=== PATIENT | male | born 1965 | race African-American/Black ===

== ENCOUNTER 2023-01-14 14:33 | Observation (INO) | payer MEDICAID ==
[~2023-01-14] VITALS: Ht 182.9 cm; Wt 99.3 kg
[2023-01-14 15:47] LABS: BASOPHILS ABSOLUTE AUTO 0.03 K/mm3 (0.00-0.23); BASOPHILS PERCENT AUTO 0 % (0-2); EOSINOPHILS PERCENT AUTO 3 % (0-6); Hematocrit 39.4 % (37.0-53.0); Hemoglobin 12.6 g/dL (13.5-17.5); IMMATURE GRAN ABSOLUTE AUTO 0.02 K/mm3 (0.00-0.10); IMMATURE GRAN PERCENT AUTO 0 % (0-1); LYMPHOCYTES ABSOLUTE AUTO 1.43 K/mm3 (0.84-5.20); LYMPHOCYTES PERCENT AUTO 20 % (21-46); MONOCYTES ABSOLUTE AUTO 0.84 K/mm3 (0.16-1.47); MONOCYTES PERCENT AUTO 12 % (4-13); Mean Corpuscular HGB 27.4 pg (26.0-34.0); Mean Corpuscular Volume 86 fL (80-100); Mean Platelet Volume 10.3 fL (9.1-12.4); NEUTROPHILS ABSOLUTE AUTO 4.48 K/mm3 (1.96-9.15); NEUTROPHILS PERCENT AUTO 64 % (41-73); Platelet Count 140 K/mm3 (150-400); RDW Coefficient Variation 14.2 % (11.7-14.2); RDW Standard Deviation 44.9 fL (35.1-46.3)
[2023-01-14 16:13] LABS: Albumin, Blood 3.1 g/dL (3.4-5.0); Albumin/Globulin Ratio 0.6 (0.8-1.8); Bilirubin, Total 0.4 mg/dL (0.1-1.0); Bun/Creatinine Ratio 15.5 (12.0-20.0); Calcium, Blood 8.9 mg/dL (8.5-10.1); Creatinine, Blood 1.16 mg/dL (0.60-1.20); Globulin, Blood 5.4 g/dL (2.2-4.0); Potassium, Blood 3.9 mmol/L (3.5-5.5); Total Protein, Blood 8.5 g/dL (6.4-8.2)
[2023-01-14 16:20] LABS: International Normalized Ratio 1.05
[2023-01-14] MEDS ORDERED: Prinivil10 MG (17:37)
[2023-01-14] MEDS ORDERED: CLOP75 (17:37)
[2023-01-14] MEDS ORDERED: AMLO5 (17:37)
[2023-01-15 04:10] LABS: BASOPHILS ABSOLUTE AUTO 0.03 K/mm3 (0.00-0.23); BASOPHILS PERCENT AUTO 1 % (0-2); EOSINOPHILS ABSOLUTE AUTO 0.31 K/mm3 (0.00-0.68); EOSINOPHILS PERCENT AUTO 5 % (0-6); Hematocrit 35.7 % (37.0-53.0); Hemoglobin 11.3 g/dL (13.5-17.5); IMMATURE GRAN ABSOLUTE AUTO 0.02 K/mm3 (0.00-0.10); IMMATURE GRAN PERCENT AUTO 0 % (0-1); LYMPHOCYTES ABSOLUTE AUTO 2.37 K/mm3 (0.84-5.20); LYMPHOCYTES PERCENT AUTO 38 % (21-46); MONOCYTES PERCENT AUTO 13 % (4-13); Mean Corpuscular HGB 26.7 pg (26.0-34.0); Mean Corpuscular HGB Conc 31.7 g/dL (31.5-36.5); Mean Corpuscular Volume 84 fL (80-100); NEUTROPHILS ABSOLUTE AUTO 2.73 K/mm3 (1.96-9.15); NEUTROPHILS PERCENT AUTO 44 % (41-73); Platelet Count 144 K/mm3 (150-400); RDW Coefficient Variation 14.4 % (11.7-14.2); RDW Standard Deviation 43.8 fL (35.1-46.3); Red Blood Cell Count 4.24 M/mm3 (4.30-5.90); White Blood Cell Count 6.26 K/mm3 (4.00-11.30)
[2023-01-15 04:40] LABS: Magnesium, Blood 2.4 mg/dL (1.6-2.4)
[2023-01-15 05:38] LABS: Albumin, Blood 2.7 g/dL (3.4-5.0); Albumin/Globulin Ratio 0.6 (0.8-1.8); Bilirubin, Total 0.4 mg/dL (0.1-1.0); Bun/Creatinine Ratio 15.9 (12.0-20.0); Calcium, Blood 8.5 mg/dL (8.5-10.1); Creatinine, Blood 1.13 mg/dL (0.60-1.20); Globulin, Blood 4.5 g/dL (2.2-4.0); Potassium, Blood 3.7 mmol/L (3.5-5.5); Total Protein, Blood 7.2 g/dL (6.4-8.2)
--- NOTE | 2023-01-15 06:41 | NUR ---
SHIFT SUMMARY ASSUMED CARE OF PT AT AROUND 2200. PT IS A/OX4, HEART SOUNDS REGULAR. LUNG SOUNDS HAVE CRACKLES AT THE BASES. PT WAS RA T/O THE NIGHT. PT DESATED TO 88% WHILE SLEEPING BUT RECOVERED QUICKLY. PT WAS A SBA TO BATHROOM. PT C/O PAIN IN R LEG. LEG IS MORE SWOLLEN THAN LEFT. PT MEDICATED PER EMAR. PT NPO SINCE MIDNIGHT. HEPRIN RUNNING.
--- NOTE | 2023-01-15 15:17 | NUR ---
ASSUMED CARE OF PT AT 0700 THIS AM. PT HAS HAD NO COMPLAINTS T/O THE SHIFT, HEPARIN RUNNING PER ORDERS. PT TO PROCEUDRE AT THIS TIME.
--- NOTE | 2023-01-15 18:57 | NUR ---
PT RETURNED FROM PROCEDURE APROX 1710 WITH FLOSTASIS CLOSURE TO R POPLETEAL. SITE SOFT, NON TENDER, NO BLEEDING OR HEMATOMA NOTED. PEDAL PULSES STRONG TO PALPATION. PT DENIES PAIN OR SOB AT THIS TIME. SEE DOCUMENTED VS. CALL LIGHT IN REACH, PT ABLE TO USE CALL LIGHT FOR NEEDS. REPORT GIVEN TO ISRAEL LEBRON RN.
--- NOTE | 2023-01-15 19:29 | NUR ---
ASSUMPTION OF CARE THIS RN ASSUMED CARE OF PATIENT AT 1900. REPORT TAKEN FROM ELMER RN. ELMER RN, ORTEGA RN, AND THIS RN AT BEDSIDE AFTER SHIFT CHANGE TO REMOVE FLOWSTASIS DEVICE FROM LEFT POPLITEAL. SITE OOZING BLOOD SLIGHTLY AFTER REMOVAL, GUAZE PRESSURE DRESSING APPLIED. PATIENT INSTRUCTED ON KEEPING LEG STRAIGHT AND AVOIDING MOVEMENT MUCH POSSIBLE. THIS RN WILL CONTINUE TO MONITOR CLOSELY FOR BLEEDING AND COMPLICATIONS. PATIENT WITH STABLE VITALS, ON ROOM AIR. DENYING CHEST PAIN/PRESSURE AND SOB AT THIS TIME. STRONG PULSES PALPATED THOUGHOUT. PATIENT A&O AND ABLE TO MAKE NEEDS KNOWN. CALM AND COOPERATIVE WITH CARE. BED IN LOWEST POSITION AND CALL LIGHT WITHIN REACH.
--- NOTE | 2023-01-16 04:44 | NUR ---
SHIFT SUMMARY PATIENT DEVELOPED A DULL CONSTANT PAIN IN THE RLQ/GROIN AREA DURING THIS SHIFT, THAT HE DESCRIBED 8/10. PATIENT MEDICATED PER EMAR WITH NO RESULTS. CALL PLACED TO MD GOMEZ REGARDING PAIN, ORDER FOR NORCO PLACED. PATIENT APPEARS TO BE RESTING AT THIS TIME. BP STABLE WITH SBP 130-140'S. SR WITH 1ST DEGREE HB NOTED ON MONITOR WITH HR 70'S. AFEBRILE. PATIENT DENIES SOB AND CHEST PAIN. SPO2 DECREASES TO 88% WHILE SLEEPING. PATIENT PLACED ON 2L VIA NC WHEN ASLEEP. OTHERWISE SPO2 >92% ON RA WHILE AWAKE. THIS RN REMOVED RIGHT POPLITEAL PRESSURE DRESSING AROUND 0000, AND REPLACED WITH TEGADERM. DRESSING C/D/I, SITE WITHOUT OOZING, BLEEDING, INFLAMMATION, HEMATOMA, OR TENDERNESS. PATIENT AMBULATED TO BATHROOM WITH NO COMPLAINTS/DISTRESS NOTED. PATIENT A&O. CALLS APPROPRIATELY. BED IN LOWEST POSITION AND CALL LIGHT WITHIN REACH. THIS RN WILL CONTINUE TO MONITOR UNTIL SHIFT CHANGE AT 0700.
[2023-01-16 07:20] LABS: BASOPHILS ABSOLUTE AUTO 0.03 K/mm3 (0.00-0.23); BASOPHILS PERCENT AUTO 1 % (0-2); EOSINOPHILS ABSOLUTE AUTO 0.33 K/mm3 (0.00-0.68); EOSINOPHILS PERCENT AUTO 7 % (0-6); Hematocrit 34.7 % (37.0-53.0); Hemoglobin 11.4 g/dL (13.5-17.5); IMMATURE GRAN ABSOLUTE AUTO 0.01 K/mm3 (0.00-0.10); IMMATURE GRAN PERCENT AUTO 0 % (0-1); LYMPHOCYTES PERCENT AUTO 24 % (21-46); MONOCYTES ABSOLUTE AUTO 0.68 K/mm3 (0.16-1.47); MONOCYTES PERCENT AUTO 13 % (4-13); Mean Corpuscular HGB 27.4 pg (26.0-34.0); Mean Corpuscular HGB Conc 32.9 g/dL (31.5-36.5); Mean Corpuscular Volume 83 fL (80-100); Mean Platelet Volume 9.8 fL (9.1-12.4); NEUTROPHILS ABSOLUTE AUTO 2.83 K/mm3 (1.96-9.15); NEUTROPHILS PERCENT AUTO 56 % (41-73); Platelet Count 156 K/mm3 (150-400); RDW Coefficient Variation 13.9 % (11.7-14.2); RDW Standard Deviation 42.5 fL (35.1-46.3); Red Blood Cell Count 4.16 M/mm3 (4.30-5.90); White Blood Cell Count 5.08 K/mm3 (4.00-11.30)
[2023-01-16 07:47] LABS: Albumin, Blood 2.6 g/dL (3.4-5.0); Albumin/Globulin Ratio 0.6 (0.8-1.8); Bilirubin, Total 0.4 mg/dL (0.1-1.0); Bun/Creatinine Ratio 13.2 (12.0-20.0); Calcium, Blood 8.3 mg/dL (8.5-10.1); Creatinine, Blood 0.99 mg/dL (0.60-1.20); Globulin, Blood 4.5 g/dL (2.2-4.0); Total Protein, Blood 7.1 g/dL (6.4-8.2)
--- NOTE | 2023-01-16 08:00 | NUR ---
INITIAL ASSESSMENT: Patient is awake sitting up in bed after finishing breakfast watching TV. He is alert and oriented. He reports that his pain is a 5/10, he states his pain is through out his leg now where as earlier his pain was just in his groin, he is medicated with an additional dose of [place] with the okay from the doctor. He denies N/T. HRR. LS CTA, Biox is 95% on RA, pt denies chest pain at this time. BT+. He has a pedal site with an opsite, CDI-no oozing present. PPP. VSS. AM meds given at this time. Plan is for DC this am. 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
[2023-01-16] MEDS ORDERED: AMLO5 PO (09:22)
[2023-01-16] MEDS ORDERED: Prinivil10 MG PO (09:22)
[2023-01-16] MEDS ORDERED: ACET325 PO (09:23)
[2023-01-16] MEDS ORDERED: DOCU100 PO (09:23)
[2023-01-16] MEDS ORDERED: HYDROCODONE-AC1 EA10 PO (09:24)
[2023-01-16] MEDS ORDERED: XARELTO15 M1 PO (09:28)
[2023-01-16] MEDS ORDERED: XARELTO20 M1 (09:29)
--- NOTE | 2023-01-16 11:30 | NUR ---
Discharge: Patient has a challenging discharge situation. Patient was able to get a Motel for 12 hours and then he will catch a bus to go back down to [place], [place]. Patient verbalizes understanding of discharge instructions. He was given samples of Xarelto from the heart center. He was able to ambulate out to his Lyft to go to his hotel.
== END 2023-01-16 12:15 | disposition home or self-care (01) ==
LOC: ER 14:33 → PCU 14:34
PROVIDERS: Physician Assistant; Student in an Organized Health Care Education/Training Program; ADMIT Student in an Organized Health Care Education/Training Program
DX: I26.99 Other pulmonary embolism without acute cor pulmonale (principal); D69.6 Thrombocytopenia, unspecified; F17.210 Nicotine dependence, cigarettes, uncomplicated; I10 Essential (primary) hypertension; I82.401 Acute embolism and thrombosis of unspecified deep veins of right lower extremity
CPT/HCPCS: 36415; 37187; 37238; 37252; 71260; 75820; 75825; 76937; 80053; 83735; 85025; 85520; 85610; 93005; 93010; 93971; 96374-59; 96375; 96375-59; 96376; 99285-25; A9270; C1725; C1753; C1757; C1769; C1887; C1894; G0378; J1644; J1885; J2250; J2270; J3010; J7030; Q9967